=== PATIENT | female | born 1960 | race Caucasian/White ===

== ENCOUNTER 2017-10-02 13:56 | Outpatient (CLI) | payer BC | END 2017-10-02 13:57 | disposition home or self-care (01) | LOC: BICMAMMO 13:56 | PROVIDERS: ATTEND Family Medicine | DX: N63.20 Unspecified lump in the left breast, unspecified quadrant (principal); R19.06 Epigastric swelling, mass or lump | CPT/HCPCS: 77066; G0279 ==

== ENCOUNTER 2017-10-03 07:29 | Outpatient (CLI) | payer BC ==
--- NOTE | 2017-10-03 08:16 | ULT ---
SOFT TISSUE ULTRASOUND OF THE ABDOMINAL WALL: History: Mass in the epigastric region of the abdomen. Technique: Multiplanar grayscale and color doppler images were obtained in a targeted ultrasound in t he area of palpable abnormality in the epigastric region of the abdomen. FINDINGS: In the area of the palpable abnormality there is a well circumscribed lesion which is isoechoic to th e subcutaneous fat. This measures approximately 4.0 cm in greatest dimension. This does not demonstra te shadowing. IMPRESSION: Palpable mass in the epigastric region has the same echogenicity as the fat and most likely represent s a lipoma. However, this exam is not definitive. Recommend physical exam. POS: [facility]
== END 2017-10-03 07:30 | disposition home or self-care (01) ==
LOC: SCSULT 07:29
PROVIDERS: ATTEND Family Medicine
DX: R19.06 Epigastric swelling, mass or lump (principal)
CPT/HCPCS: 76999

== ENCOUNTER 2017-10-30 08:51 | Outpatient (CLI) | payer BC ==
--- NOTE | 2017-10-30 10:29 | CT ---
CT ABDOMEN WITHOUT CONTRAST: HISTORY: A 57-year-old female with mid upper abdominal palpable mass. FINDINGS: Absence of oral and IV contrast reduces the sensitivity of the exam, particularly for evaluation of s olid organs involved. The lung bases are clear. There are multiple low-density lesions in the liver, the largest of these measuring 1.5 cm in the left lobe of the liver is consistent with a cyst. The other is also likely c yst. No free air or free fluid is seen in the abdomen or pelvis. No calcified gallstones are identi fied. There is a tiny nonobstructing left renal calculus. No calculi are seen in the right kidney or visua lized portions of either ureter. No hydroureteral nephrosis is noted on either side. There are cyst s in the left kidney. There is colonic diverticulosis. The appendix is normal. There is a fat-containing ventral hernia s uperior to the umbilicus. There is no evidence of aneurysmal dilatation of the abdominal aorta. Ther e are degenerative changes in the spine. IMPRESSION: 1. Fat-containing ventral hernia. 2. Tiny nonobstructing left renal calculus. 3. Left renal and liver cysts. 4. Colonic diverticulosis. POS: [facility]
== END 2017-10-30 08:52 | disposition home or self-care (01) ==
LOC: SCSCT 08:51
PROVIDERS: ATTEND Family Medicine
DX: R19.06 Epigastric swelling, mass or lump (principal); K43.9 Ventral hernia without obstruction or gangrene; N20.0 Calculus of kidney; N28.89 Other specified disorders of kidney and ureter; K76.89 Other specified diseases of liver; K57.30 Diverticulosis of large intestine without perforation or abscess without bleeding
CPT/HCPCS: 74150

== ENCOUNTER 2019-07-12 15:02 | Outpatient (CLI) | payer BC ==
--- NOTE | 2019-07-12 17:57 | CT ---
CT OF THE ABDOMEN AND PELVIS WITH IV CONTRAST INDICATION: Severe lower abdominal pain COMPARISON: CT of the abdomen without contrast dated October 30, 2017 FINDINGS: ABDOMEN: Lung bases: Clear Liver: Stable hepatic cysts Gallbladder: Normal appearing. Pancreas: Normal. Adrenal glands: Normal. Spleen: Normal. Kidneys and ureters: Stable bilateral renal cysts. No hydronephrosis. Vasculature: Normal. Lymph nodes:No lymphadenopathy. Free fluid in abdomen:No free fluid is evident. PELVIS: Small and large bowel: Stable colonic diverticulosis. No active diverticulitis. Appendix:Normal Bladder: Normal. Rectal and perirectal soft tissues:Normal. Reproductive structures: Surgically absent Free fluid in pelvis: No free fluid is evident. Lymphadenopathy pelvis: No lymphadenopathy is evident. Osseous structures: No acute osseous abnormality. No destructive osteolytic or osteoblastic lesion i s identified. There is scattered degenerative and osteoarthritic changes. Soft tissues:Normal. IMPRESSION: 1. No acute abnormality.
== END 2019-07-12 15:03 | disposition home or self-care (01) ==
LOC: SCSCT 15:02
PROVIDERS: ATTEND Physician Assistant Medical
DX: K57.20 Diverticulitis of large intestine with perforation and abscess without bleeding (principal)
CPT/HCPCS: 74177

== ENCOUNTER 2019-12-27 11:36 | Outpatient (CLI) | payer BC ==
--- NOTE | 2019-12-27 12:56 | MMO ---
Bilateral MAMMO Bilat Screen [facility]. CLINICAL HISTORY: Patient is 59 years old and is seen for screening. The patient has the following family history of breast cancer: paternal aunt, malignant (generic). The patient has no personal history of cancer. VIEWS: The views performed were: bilateral craniocaudal with tomosynthesis and bilateral mediolateral oblique with tomosynthesis. FILMS COMPARED: The present examination has been compared to prior imaging studies performed at [facility] on 10/02/2017, and at [facility] on 05/05/2009, 06/14/2012 and 10/12/2016. This study has been interpreted with the assistance of computer-aided detection. MAMMOGRAM FINDINGS: There are scattered fibroglandular densities. There are no suspicious masses, suspicious calcifications, or new areas of architectural distortion. IMPRESSION: THERE IS NO MAMMOGRAPHIC EVIDENCE OF MALIGNANCY. A ROUTINE FOLLOW-UP MAMMOGRAM IN 1 YEAR IS RECOMMENDED. THE RESULTS OF THIS EXAM WERE SENT TO THE PATIENT. ACR BI-RADS Category 1 - Negative MAMMOGRAPHY NOTE: 1. A negative mammogram report should not delay a biopsy if a dominant of clinically suspicious mass is present. 2. Approximately 10% to 15% of breast cancers are not detected by mammography. 3. Adenosis and dense breasts may obscure an underlying neoplasm. Reported by: KULDEEP MOTT MD Electonically Signed: [id number]
== END 2019-12-27 11:37 | disposition home or self-care (01) ==
LOC: BICMAMMO 11:36
PROVIDERS: ATTEND Family Medicine
DX: Z12.31 Encounter for screening mammogram for malignant neoplasm of breast (principal); Z80.3 Family history of malignant neoplasm of breast
CPT/HCPCS: 77063; 77067

== ENCOUNTER 2020-04-09 10:20 | Outpatient (CLI) | payer BC ==
--- NOTE | 2020-04-09 12:55 | CT ---
CT ABDOMEN AND PELVIS WITH ORAL AND IV CONTRAST: Date: 04/09/2020 HISTORY: Changes in bowel function. Diverticulosis. Left lower quadrant pain. COMPARISON: 07/12/2019. FINDINGS: The lung bases are clear. Liver and left renal cysts are stable. No calcified gallstones are seen. Th e spleen, pancreas, adrenal glands, and right kidney are normal. No free air, free fluid, or lymphadenopathy seen in the abdomen or pelvis. The patient is post hyster ectomy. The small bowel loops are not abnormally dilated. A normal appearing appendix is present. There is co lonic diverticulosis without evidence of diverticulitis. No abnormally loculated fluid collection is seen to suggest abscess formation. Aorta is normal caliber. No osteolytic or osteoblastic lesions are seen. IMPRESSION: No evidence of acute process. POS: [facility]
== END 2020-04-09 10:21 | disposition home or self-care (01) ==
LOC: SCSCT 10:20
PROVIDERS: ATTEND Physician Assistant Medical
DX: K57.90 Diverticulosis of intestine, part unspecified, without perforation or abscess without bleeding (principal); R19.4 Change in bowel habit; R10.32 Left lower quadrant pain
CPT/HCPCS: 74177

== ENCOUNTER 2024-04-09 09:36 | Outpatient (CLI) | payer BC ==
[2024-04-09] MEDS ORDERED: Iopamidol 370 76% 100 ML VIAL ONE (10:39)
== END 2024-04-09 09:37 | disposition home or self-care (01) ==
LOC: CT 09:36
PROVIDERS: ATTEND Physician Assistant Medical
DX: R19.4 Change in bowel habit (principal); R10.12 Left upper quadrant pain; R10.32 Left lower quadrant pain; R63.0 Anorexia; K64.8 Other hemorrhoids
CPT/HCPCS: 74177; 82565; Q9967